=== PATIENT | male | born 1970 | race Hispanic/Latino ===

== ENCOUNTER 2017-05-11 20:44 | Emergency (ER) | payer SELFPAY ==
[2017-05-11 20:50] VITALS: BP 142/85; PULSE 85; RESP 16; TEMP 97.8; O2SAT 97
--- NOTE | 2017-05-11 21:42 | ED PDOC ---
HPI: Psych/Substance Abuse Time Seen by Provider: 05/11/17 20:51 Chief Complaint (Nursing): Alcohol Ingestion Chief Complaint (Provider): etoh History Per: Patient, EMS History/Exam Limitations: intoxication Additional History Per: Patient, EMS Additional Complaint(s): 46 y/o male brought in by EMS for alcohol intoxication. [place]; admits to drinking tonight. States he was trying to get home. Patient denies acute medical or psychiatric complaints. Past Medical History Reviewed: Historical Data, Nursing Documentation, Vital Signs Vital Signs: Last Vital Signs Temp 97.8 F 05/11/17 20:47 Pulse 85 05/11/17 20:47 Resp 16 05/11/17 20:47 BP 142/85 05/11/17 20:47 Pulse Ox 97 05/11/17 20:47 - Medical History PMH: No Chronic Diseases - Surgical History Surgical History: No Surg Hx - Family History Family History: States: No Known Family Hx - Allergies Allergies/Adverse Reactions: Allergies Allergy/AdvReac Type Severity Reaction Status Date / Time No Known Allergies Allergy Verified 05/11/17 21:39 Review of Systems ROS Statement: Except As Marked, All Systems Reviewed And Found Negative Physical Exam - Reviewed Nursing Documentation Reviewed: Yes Vital Signs Reviewed: Yes - Physical Exam Appears: Positive for: Well, Non-toxic, No Acute Distress Head Exam: Positive for: ATRAUMATIC, NORMAL INSPECTION, NORMOCEPHALIC Skin: Positive for: Normal Color Eye Exam: Positive for: Normal appearance ENT: Positive for: Normal ENT Inspection Cardiovascular/Chest: Positive for: Regular Rate, Rhythm Respiratory: Positive for: Normal Breath Sounds Gastrointestinal/Abdominal: Positive for: Normal Exam Extremity: Positive for: Normal ROM Neurologic/Psych: Positive for: Alert, Oriented, Other (slurred speech, +AOB) - Laboratory Results Result Diagrams: 05/11/17 21:50 05/11/17 21:50 - ECG O2 Sat by Pulse Oximetry: 97 - Progress ED Course And Treament: labs, accucheck 00:45 Patient awake, alert, oriented x3. Ambulating to bathroom with steady gait Stable for discharge Disposition - Clinical Impression Clinical Impression: Acute alcohol intoxication - Patient ED Disposition Is Patient to be Admitted: No Counseled Patient/Family Regarding: Studies Performed, Diagnosis, Need For Followup - Disposition Disposition: Routine/Home Disposition Time: 00:49 Condition: STABLE Instructions: Alcohol Intoxication (ED)
[2017-05-11 21:58] LABS: BASO % 0.4 % (0.0-2.0); EOS # 0.1 K/uL (0.0-0.7); EOS % 0.7 % (0.0-4.0); HEMATOCRIT 46.3 % (35.0-51.0); LYMPH # 1.1 K/uL (1.0-4.3); LYMPH % 12.5 % (20.0-40.0); MEAN CELL VOLUME 89.3 fl (80.0-94.0); MEAN CORPUSCULAR HEMOGLOBIN 30.7 pg (27.0-31.0); MEAN CORPUSCULAR HGB CONC 34.3 g/dL (33.0-37.0); MEAN PLATELET VOLUME 7.5 fl (7.2-11.7); MONO # 0.3 K/uL (0.0-0.8); MONO % 3.7 % (0.0-10.0); NEUT % 82.7 % (50.0-75.0); RED CELL DISTRIBUTION WIDTH 12.8 % (11.5-14.5); WHITE BLOOD COUNT 8.5 K/uL (4.8-10.8)
[2017-05-11 22:18] LABS: POTASSIUM 4.1 MMOL/L (3.6-5.0)
[2017-05-11 22:26] LABS: ALB/GLOB RATIO 1.5 (1.0-2.1); ALCOHOL SERUM 259 mg/dl (0-10); ALKALINE PHOSPHATASE 49 U/L (38-126); ALT/SGPT 42 U/L (21-72); AST/SGOT 26 U/L (17-59); BILIRUBIN,TOTAL 0.5 mg/dl (0.2-1.3); BLOOD UREA NITROGEN 11 mg/dl (9-20); CALCIUM 8.8 mg/dL (8.4-10.2); CARBON DIOXIDE 22 mmol/L (22-30); CHLORIDE 108 mmol/L (98-107); GFR AFRICAN-AMERICAN > 60; GLUCOSE,RANDOM 135 mg/dL (75-110); SODIUM 144 mmol/l (132-148); TOTAL PROTEIN 7.5 G/DL (6.3-8.2)
== END 2017-05-12 00:45 | disposition home or self-care (01) ==
LOC: H.ER 20:44
DX: F10.129 Alcohol abuse with intoxication, unspecified (principal)
CPT/HCPCS: 80053; 82948; 85025; 99282; G0480